=== PATIENT | male | born 2000 | race Caucasian/White ===

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

== ENCOUNTER 2019-03-09 00:56 | Emergency (ER) | payer MEDICAID ==
[~2019-03-09] VITALS: Ht 175.3 cm; Wt 91.0 kg
[2019-03-09 05:16] VITALS: BP 122/81
== END 2019-03-09 05:17 | disposition home or self-care (01) ==
LOC: ER 00:56
DX: S29.011A Strain of muscle and tendon of front wall of thorax, initial encounter (principal); X58.XXXA Exposure to other specified factors, initial encounter; Y93.89 Activity, other specified; Y92.89 Other specified places as the place of occurrence of the external cause; Y99.8 Other external cause status
CPT/HCPCS: 71045; 93005; 99283

== ENCOUNTER 2019-03-29 20:32 | Emergency (ER) | payer MEDICAID | END 2019-03-29 21:07 | disposition left against medical advice (07) | LOC: ER 20:39 | DX: Z53.21 Procedure and treatment not carried out due to patient leaving prior to being seen by health care provider (principal) ==